=== PATIENT | female | born 1950 | race Caucasian/White ===

== ENCOUNTER 2017-12-16 06:10 | Day surgery (SDC) | payer MEDICARE, OTHER ==
[2017-12-16 06:29] LABS: ADD MAN DIFF? NO
[2017-12-16 06:33] LABS: BASOPHIL # 0.1 10^3/ul (0.0-0.1); BASOPHILS % 0.4 % (0.0-2.0); EOSINOPHILS # 0.3 10^3/ul (0.0-0.5); EOSINOPHILS % 2.3 % (0.0-7.0); HEMATOCRIT 39.2 % (37.0-47.0); HEMOGLOBIN 12.6 g/dl (12.0-16.0); LYMPHOCYTES # 2.3 10^3/ul (0.8-2.9); MEAN CORPUSCULAR HGB CONC 32.1 g/dl (32.0-37.0); MEAN CORPUSCULAR VOLUME 84.1 fl (82.0-101.0); MEAN PLATELET VOLUME 11.8 fl (7.4-10.4); MONOCYTE # 1.2 10^3/ul (0.3-0.9); NEUTROPHIL # 8.3 10^3/ul (1.6-7.5); NEUTROPHILS % 67.6 % (39.0-77.0); PLATELET COUNT 229 10^3/UL (140-415); RED BLOOD COUNT 4.66 10^6/ul (4.20-5.40); RED CELL DISTRIBUTION WIDTH 14.9 % (11.5-14.5)
[2017-12-16 06:33] LABS: WHITE BLOOD COUNT 12.3 10^3/ul (4.8-10.8)
[2017-12-16 06:43] LABS: HOLD TRANSMISSIONS 1
[2017-12-16 06:52] LABS: INR 1.25; PROTIME 15.9 Sec (11.9-14.9); PT RATIO 1.2
[2017-12-16 06:54] LABS: ANION GAP 10 (8-16); BLOOD UREA NITROGEN 14 mg/dl (7-20); CALCIUM 8.9 mg/dl (8.4-10.2); CARBON DIOXIDE 27 mmol/L (21-31); CHLORIDE 106 mmol/L (97-110); CREATININE 0.77 mg/dl (0.44-1.00); GLUCOSE 100 mg/dl (70-220); POTASSIUM 3.4 mmol/L (3.5-5.1); SODIUM 140 mmol/L (135-144)
[2017-12-16] MEDS ORDERED: MIDAZOLAM 1 MG/ML 2 ML INJ (07:28)
[2017-12-16] MEDS ORDERED: LIDOCAINE 1% (MDV) 20 ML INJ (07:28)
[2017-12-16] MEDS ORDERED: FENTAnyl 50 MCG/ML VIAL (07:28)
[2017-12-16] MEDS ORDERED: IODIXANOL LOCM 100 ML BTL (07:28)
[2017-12-16] MEDS ORDERED: HEPARIN 1000 UNITS/ML 10 ML INJ (07:28)
[2017-12-16] MEDS ORDERED: VERAPAMIL 5 MG INJ (07:29)
[2017-12-16] MEDS ORDERED: NITROGLYCERIN (IC) 100 MCG/ML INJ (07:29)
[2017-12-16] MEDS ORDERED: SOD CHLORIDE 0.9% 500 ML (08:01)
== END 2017-12-16 11:20 | disposition home or self-care (01) ==
LOC: SDS 06:10
DX: I38 Endocarditis, valve unspecified (principal)
CPT/HCPCS: 80048; 85025; 85610; 85730; 93005; 93454